=== PATIENT | female | born 1990 | race Two or more races ===

== ENCOUNTER 2020-07-16 13:25 | Emergency (ER) | payer MEDICAID ==
[~2020-07-16] VITALS: Ht 154.9 cm; Wt 52.2 kg
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
[2020-07-16] MEDS ORDERED: LIDOCAINE 2%-EPI 1:100,000 30 ML VIAL ONE (16:17)
[2020-07-16] MEDS ORDERED: LIDOCAINE 1%-EPI 1:100,000 20 ML VIAL TP ONE (16:30)
--- NOTE | 2020-07-16 16:42 | NUR ---
DR COUGHLIN AT BEDSIDE FOR I&D AT [facility]
[2020-07-16 17:53] VITALS: BP 126/69
== END 2020-07-16 17:55 | disposition home or self-care (01) ==
LOC: ER 13:28
DX: S01.311A Laceration without foreign body of right ear, initial encounter (principal); Y08.89XA Assault by other specified means, initial encounter; Y93.89 Activity, other specified; Y92.89 Other specified places as the place of occurrence of the external cause; Y99.8 Other external cause status
CPT/HCPCS: 69000; 70450; 72125; 84703; 99285; A6403; J3490